=== PATIENT | female | born 2000 | race Caucasian/White ===

== ENCOUNTER → 2022-08-10 | Outpatient (CLI) | payer OTHER, MEDICAID ==
--- NOTE | 2022-08-10 11:39 | Diagnostic Imaging Report ---
INDICATION: survey. TECHNIQUE: Multiple real-time grayscale images were obtained over the gravid uterus. COMPARISON: None FINDINGS: There is a single live fetus in a transverse presentation head to maternal left. heart rate was recorded at 139 bpm. The placenta is anterior. No previa is identified. Amniotic fluid volume is normal. kidneys, bladder and stomach are unremarkable. The brain is unremarkable. There is a four-chamber heart. There is a three-vessel cord with normal insertion. spine is unremarkable. The maternal adnexa was not evaluated. Biometrical measurements are as follows: Biparietal 4.53 cm, age 19 weeks 5 days. Head circumference 17.77 cm, age 20 weeks 2 days. Abdominal circumference 15.19 cm, age 20 weeks 3 days. Femur length 3.2 cm, age 20 weeks 0 days. Sonographic estimate age: 20 weeks 1 days. Sonographic estimated date of delivery: 12/27/2022. Estimated Weight: 338 gm (+/- 50 gm). LMP percentile: 56%. heart rate: 139 beats per minute. number: 1 of 1. IMPRESSION: Single live IUP 20 weeks 1 day gestational age. Estimated date of confinement sonographically is 12/27/2022. Dictated by: Dictated on workstation # [id number]
== END ==
LOC: RAD 09:40
PROVIDERS: ATTEND Nurse Practitioner Women's Health
DX: Z34.92 Encounter for supervision of normal pregnancy, unspecified, second trimester (principal); Z3A.20 20 weeks gestation of pregnancy
CPT/HCPCS: 76805